=== PATIENT | female | born 1995 | race Caucasian/White ===

== ENCOUNTER 2023-01-03 12:26 | Emergency (ER) | payer MEDICAID, SELFPAY ==
[2023-01-03 12:27] VITALS: BP 134/88; PULSE 74; RESP 17; TEMP 36.8; O2SAT 97; BMI 25.0
[2023-01-03 12:31] VITALS: BP 134/88; PULSE 58; RESP 22; O2SAT 96
--- NOTE | 2023-01-03 12:34 | HMH.EDGENADL ---
Discharge Plan Disposition Patient Disposition: Home, Self-Care Referrals Follow up/Referrals: Nancy Chakraborty APRN [Primary Care Provider] - See instructions Activity Restrictions/Add. Instructions Additional Instructions/Restrictions: Please call [facility] plastic surgery to make an appointment with her hand specialists for evaluation of possible carpal tunnel intervention. Clinical Impressions Clinical Impression: Bilateral hand swelling Discharge ED Provider: Liang Isaac General Adult HPI General Chief complaint: Extremity Problem,Nontraumatic Stated complaint: hands swelling Time Seen by Provider: 01/03/23 12:34 History of Present Illness HPI narrative: 27-year-old female presenting with bilateral hand swelling nontraumatic in nature. She states that she has a history of injection drug use used for 3 years but has not used in the past 3 years. She states that she had an appointment in the past with a hand surgeon was post to do a carpal tunnel release but she went crazy with meth . She states that over the last several days her hand swelling has worsened she denies any chest pain shortness of breath more proximal swelling any fevers chills or focal swelling to her hands. She states that circumferential in nature worse with dependent improves with slight elevation at night sleeping with her hands on her chest. Specifically she asked for referral to hand surgery to have this evaluated further. She states she was unable to get her primary care doctor for an extended period of time which is why she came to the emergency department. Related Data Allergies Allergy/AdvReac Type Severity Reaction Status Date / Time amphetamine [From ADDERALL] Allergy Unknown Unverified 10/18/17 14:53 dextroamphetamine Allergy Unknown Unverified 10/18/17 14:53 [From ADDERALL] labetalol [LABETALOL] Allergy Unknown I-HIVES Unverified 10/18/17 14:53 quetiapine [From SEROQUEL] Allergy Unknown DIZZY, Unverified 10/18/17 14:53 FIDGETING ziprasidone [From GEODON] Allergy Unknown Unverified 10/18/17 14:53 PFSH PFS Disclaimer: The information contained in this section may have been updated after the patient was seen, as this information can be updated by other users. Medical History (Updated 01/03/23 @ 12:42 by Liang Isaac MD) ADHD Anxiety Surgical History (Updated 01/03/23 @ 12:34 by Mary Elliott RN) H/O section Family History (Updated 01/03/23 @ 12:34 by Mary Elliott RN) Other No significant family history Social History (Updated 01/03/23 @ 12:34 by Mary Elliott RN) Smoking Status: Current every day smoker alcohol intake: never current occupational status: other Travel in the last 8 weeks: None ROS Obtained: Yes All systems reviewed & no additional complaints except as documented Physical Exam General General appearance: alert and in no apparent distress Respiratory Respiratory exam: Present normal lung sounds bilaterally Cardiovascular Cardiovascular exam: Present regular rate; Absent tachycardia Extremities Exam Extremities exam: Present other (Bilateral upper extremities mildly swollen circumferentially in nature no pathologic erythema or focal fluctuance or swelling. Normal thumb opposition and strength and muscle mass in the thenar eminence and hypothenar eminence negative Tinel's and no muscular atrophy throughout the hands finger abd) Neurological Exam Neurological exam: Present alert and oriented X3 Medical Decision Making [place] Inquiry Pt receiving controlled substance: No Vital Signs: 01/03/23 12:27 01/03/23 12:31 Temperature 98.2 F Temperature Source Oral Pulse Rate 58 L Pulse Rate [Radial] 74 Respiratory Rate 17 22 Blood Pressure 134/88 Blood Pressure [Right Arm] 134/88 Blood Pressure Mean 99 Blood Pressure Mean [Right Arm] 103 Blood Pressure Source [Right Arm] Automatic Cuff Blood Pressure Position [Right Arm] Sittin
--- NOTE | 2023-01-03 12:37 | PC.NURSE ---
DR AVILA AT BEDSIDE
[2023-01-03 12:51] VITALS: BP 134/88; PULSE 58; RESP 20; TEMP 36.8; O2SAT 96
== END 2023-01-03 12:51 | disposition home or self-care (01) ==
PROVIDERS: Emergency Provider Student in an Organized Health Care Education/Training Program; PCP Registered Nurse
DX: R60.0 Localized edema (principal); F90.9 Attention-deficit hyperactivity disorder, unspecified type; F41.9 Anxiety disorder, unspecified; F17.210 Nicotine dependence, cigarettes, uncomplicated
CPT/HCPCS: 99283

== ENCOUNTER 2023-06-23 08:05 | Emergency (ER) | payer MEDICAID, SELFPAY ==
[2023-06-23 08:40] VITALS: BP 132/83; PULSE 85; RESP 18; TEMP 36.8; O2SAT 96; BMI 26.2
--- NOTE | 2023-06-23 09:08 | EXP.UTC ---
Discharge Plan Disposition Patient Disposition: Home, Self-Care Condition: Good Referrals Follow up/Referrals: Provider,Referral, MD [Primary Care Provider] - See instructions Activity Restrictions/Add. Instructions Additional Instructions/Restrictions: *Monitor Temp, Over the counter Motrin or Tylenol as directed/as needed Tylenol every 4 hours and Motrin every 6 hours (as long as your family doctor has told you that you can take it) for fever or pain. and straight to ER if unable to lower temp less than 101.0 after medication given *Warm salt water gargles may help to soothe the throat *Throat Lozenges? *Warm fluids like tea with honey may help to soothe the throat? *Sleep elevated *Humidifier/Vaporizer Follow up IMMEDIATELY for new or worsening symptoms or no Noticeable improvement over the next 48-72 hours. 911 for difficulty breathing or swallowing You were tested for today for Upper Respiratory Panel with COVID19 your test result should be back in the next 24-48 hours you may check your results on the [facility] [employer] Portal Clinical Impressions Clinical Impression: Encounter for laboratory testing for COVID-19 virus Stand Alone Forms Stand Alone Forms: Work/School Release Instructions Patient Instructions: DI for COVID-19 (Suspected or Confirmed ), Preventing the Spread of Coronavirus Discharge Instructions Discharge ED Provider: Erendira Pablo [facility] HPI General Stated complaint: covid +, fever, runny nose, cough, sore throat Mode of Arrival: Ambulatory Source of Information: Patient Limitations: No Limitations Time Seen by Provider: 06/23/23 09:09 Description of Symptoms (Recalled from Triage Doc. by RN): PATIENT C/O SORE THROAT AND BODY ACHES. REQUESTING COVID TEST HEENT Symptoms (Recalled from RN notes): Yes Resp Symptoms (Recalled from RN notes): No Skin Symptoms (Recalled from RN notes): No MS Symptoms (Recalled from RN notes): No Functional Status (Recalled from RN notes): WNL History of Present Illness Provider Complaint: Patient states that she has been having sore throat and body aches and she took a home COVID test and it was positive states that she wanted to get a COVID test here to make sure that she is positive Related Data Allergies Allergy/AdvReac Type Severity Reaction Status Date / Time amphetamine [From ADDERALL] Allergy Unknown Verified 06/23/23 09:03 dextroamphetamine Allergy Unknown Verified 06/23/23 09:03 [From ADDERALL] labetalol [LABETALOL] Allergy Unknown I-HIVES Verified 06/23/23 09:03 quetiapine [From SEROQUEL] Allergy Unknown DIZZY, Verified 06/23/23 09:03 FIDGETING ziprasidone [From GEODON] Allergy Unknown Verified 06/23/23 09:03 Worker's Comp Is this a Worker's Comp case?: No [facility] Disclaimer: The information contained in this section may have been updated after the patient was seen, as this information can be updated by other users. Medical History (Updated 06/23/23 @ 09:11 by Erendira Pablo APRN) ADHD Anxiety Surgical History (Updated 01/03/23 @ 12:34 by Mary Elliott RN) H/O section Family History (Updated 01/03/23 @ 12:34 by Mary Elliott RN) Other No significant family history Social History (Updated 01/03/23 @ 12:46 by Liang Isaac MD) Smoking Status: Current every day smoker alcohol intake: never current occupational status: other Travel in the last 8 weeks: None ROS Obtained: Yes All systems reviewed & no additional complaints except as documented and Yes Systems reviewed as appropriate & no additional complaints except as documented Constitutional Constitutional: Reports system reviewed and no additional complaints, except as documented and Reports as per HPI ENT Ears, Nose, Mouth, and Throat: Reports system reviewed and no additional complaints, except as documented, Reports as per HPI, Reports nasal congestion and Reports sore throat Cardiovascular Cardi
[2023-06-23 09:09] VITALS: BP 132/83; PULSE 85; RESP 18; TEMP 36.8; O2SAT 96
== END 2023-06-23 09:20 | disposition home or self-care (01) ==
PROVIDERS: Emergency Provider Nurse Practitioner
DX: U07.1 COVID-19 (principal); F17.210 Nicotine dependence, cigarettes, uncomplicated; F90.9 Attention-deficit hyperactivity disorder, unspecified type; F41.9 Anxiety disorder, unspecified
CPT/HCPCS: 99203; 99212; G0463

== ENCOUNTER 2023-10-19 21:04 | Emergency (ER) | payer MEDICAID, SELFPAY ==
[2023-10-19 21:05] VITALS: BP 137/92; PULSE 83; RESP 19; TEMP 36.9; O2SAT 100; BMI 29.9
[2023-10-19 21:30] VITALS: BP 137/92; PULSE 85; RESP 18; TEMP 36.6; O2SAT 96
--- NOTE | 2023-10-19 21:46 | HMH.EDGENADL ---
Discharge Plan Disposition Patient Disposition: Home, Self-Care Condition: Good Prescriptions Prescriptions: New ondansetron HCl 4 mg tablet 4 mg PO Q8H PRN (Reason: nausea and vomiting) 4 Days Qty: 12 0RF No Action buprenorphine-naloxone 8-2 mg tablet, sublingual sublingual lithium carbonate 300 mg tablet extended release PO risperidone 2 mg tablet 2 mg PO DAILY Patient Comments: TAKE 1 TABLET BY MOUTH DAILY AT BEDTIME aripiprazole 5 mg tablet 5 mg PO DAILY lidocaine 5 % adhesive patch,medicated 1 patch topical Patient Comments: APPLY TO THE LEFT HIP AT BEDTIME AND REMOVE UPON WAKING gabapentin 400 mg capsule 400 mg PO PRN atomoxetine 80 mg capsule PO Patient Comments: TAKE 1 CAPSULE BY MOUTH EVERY DAY bupropion HCl 300 mg tablet extended release 24 hr 300 mg PO DAILY Patient Comments: TAKE 1 TABLET BY MOUTH DAILY IN THE MORNING Paxlovid 300 mg (150 mg x 2)-100 mg tablets,dose pack PO Patient Comments: FOLLOW PACKAGE DIRECTIONS Referrals Follow up/Referrals: Ewa Brown APRN [Primary Care Provider] - See instructions Activity Restrictions/Add. Instructions Additional Instructions/Restrictions: You were evaluated in the emergency department today. 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 Hydrate is much as possible. Return to the emergency department for new or worsening symptoms. Clinical Impressions Clinical Impression: Viral gastritis Stand Alone Forms Stand Alone Forms: Work/School Release Discharge ED Provider: Stefania Rowe General Adult HPI General Chief complaint: Upper Respiratory Infection Stated complaint: vomiting, body aches Time Seen by Provider: 10/19/23 21:14 Mode of Arrival: Ambulatory Source of Information: Patient Limitations: No Limitations Description of Symptoms (Recalled from ER Triage Doc. by RN): 28 F presents from home with complaints of vomiting, subjective fever, and body aches. Patient states she is just here for a work excuse. History of Present Illness HPI narrative: This patient is a 28-year-old female who denies significant past medical history presenting to the emergency department for evaluation with concern for nausea and vomiting. Patient states that she thinks that she has a viral stomach bug, and her symptoms are already resolving. She states that her work got mad at her for calling in, so she came in for a work excuse. She denies any concerns or complaints at this time. She denies any abdominal pain. Related Data Home Medications Medication Instructions Recorded Confirmed aripiprazole 5 mg tablet 5 mg PO DAILY 06/29/23 09/26/23 atomoxetine 80 mg capsule mg PO 06/29/23 09/26/23 buprenorphine 8 mg-naloxone 2 mg tab sublingual 06/29/23 09/26/23 sublingual tablet bupropion HCl 300 mg 24 hr tablet, 300 mg PO DAILY 06/29/23 09/26/23 extended release gabapentin 400 mg capsule 400 mg PO PRN 06/29/23 09/26/23 lidocaine 5 % topical patch 1 patch topical 06/29/23 09/26/23 lithium carbonate 300 mg mg PO 06/29/23 09/26/23 tablet,extended release nirmatrelvir 300 mg (150 mg tab PO 06/29/23 09/26/23 x2)-ritonavir 100 mg tablet,dose pack (Paxlovid) risperidone 2 mg tablet 2 mg PO DAILY 06/29/23 09/26/23 Previous Rx's Medication Instructions Recorded ondansetron HCl 4 mg tablet 4 mg PO Q8H PRN nausea and 10/19/23 vomiting 4 days #12 tabs Allergies Allergy/AdvReac Type Severity Reaction Status Date / Time amphetamine [From ADDERALL] Allergy Unknown Verified 09/26/23 11:01 dextroamphetamine Allergy Unknown Verified 09/26/23 11:01 [From ADDERALL] labetalol [LABETALOL] Allergy Unknown I-HIVES Verified 09/26/23 11:01 quetiapine [From SEROQUEL] Allergy Unknown DIZZY, Verified 09/26/23 11:01 FIDGETING ziprasidone [From GEODON] Allergy Unknown Verified 09/26/23 11:01 PFS PFSH D
== END 2023-10-19 21:31 | disposition home or self-care (01) ==
PROVIDERS: Emergency Provider Emergency Medicine; PCP Nurse Practitioner Family
DX: A08.4 Viral intestinal infection, unspecified (principal); R11.2 Nausea with vomiting, unspecified; R50.9 Fever, unspecified; M79.18 Myalgia, other site; F17.210 Nicotine dependence, cigarettes, uncomplicated
CPT/HCPCS: 99283

== ENCOUNTER 2023-12-18 08:06 | Emergency (ER) | payer MEDICAID, SELFPAY ==
[2023-12-18 08:10] VITALS: BP 157/113; PULSE 97; O2SAT 99
--- NOTE | 2023-12-18 08:18 | ED_ITS ---
Discharge Plan Disposition Patient Disposition: Home, Self-Care Chief Complaint: Vaginal Bleeding Prescriptions Prescriptions: No Action aripiprazole 5 mg tablet 5 mg PO DAILY lidocaine 5 % adhesive patch,medicated 1 patch topical Patient Comments: APPLY TO THE LEFT HIP AT BEDTIME AND REMOVE UPON WAKING gabapentin 400 mg capsule 400 mg PO PRN atomoxetine 80 mg capsule PO Patient Comments: TAKE 1 CAPSULE BY MOUTH EVERY DAY bupropion HCl 300 mg tablet extended release 24 hr 300 mg PO DAILY Patient Comments: TAKE 1 TABLET BY MOUTH DAILY IN THE MORNING risperidone 1 mg tablet 1 mg PO DAILY Patient Comments: TAKE 1/2 TO 1 TABLET BY MOUTH EVERY DAY NEEDED FOR MOOD OR ANXIETY. MAY TAKE A 1/2 TABLET TWICE DAILY IN MORNING AND AFTERNOON bupropion HCl 150 mg tablet extended release 24 hr 150 mg PO DAILY Patient Comments: TAKE 1 TABLET BY MOUTH EVERY MORNING WITH 300 MG TABLET. Mirena 21 mcg/24 hours (8 yrs) 52 mg intrauterine device intrauterine lithium carbonate 300 mg tablet extended release 300 mg PO DAILY Patient Comments: TAKE 1 TABLET BY MOUTH EVERY DAY AT BEDTIME Sublocade 300 mg/1.5 mL solution, extended rel syringe 300 mg SQ QMONTH Classic 28 mg iron- 800 mcg tablet 1 tab PO DAILY Qty: 30 11RF Referrals Follow up/Referrals: Ewa Brown APRN [Primary Care Provider] - See instructions Activity Restrictions/Add. Instructions Additional Instructions/Restrictions: At this time it was felt you are safe to be discharged home. If new or worsening symptoms please do not hesitate to return the emergency department. Please call and schedule appoint with Dr. Martel's office this week. Clinical Impressions Clinical Impression: Vaginal bleeding Discharge ED Provider: Matt Flores General Adult HPI General Chief complaint: Vaginal Bleeding Stated complaint: blood clots bleeding Time Seen by Provider: 12/18/23 08:10 History of Present Illness HPI narrative: Patient is a 28-year-old female with past medical history of bipolar disorder on multi medication therapy, , 3 previous C-sections who presents emergency department for evaluation of vaginal bleeding. Her baseline menstrual cycle is regular, occurring 7 days in duration, using 1 pad approximately every 6 hours. This was her baseline until approximately last May when she had Mirena placed. Since then patient had no menstrual cycle until approximately 3 weeks ago, 2 weeks ago she presented to the Dr. Bailon who removed IUD as they were wishing to attempt to conceive. After IUD removal over the last 2 weeks patient has had persistent bleeding, 1 pad approximately every 3-4 hours, with passage of clots. Due to persistent symptoms she presents here for continued evaluation. No abdominal pain, no other acute complaints at this time. Related Data Home Medications Medication Instructions Recorded Confirmed aripiprazole 5 mg tablet 5 mg PO DAILY 06/29/23 12/12/23 atomoxetine 80 mg capsule mg PO 06/29/23 12/12/23 bupropion HCl 300 mg 24 hr tablet, 300 mg PO DAILY 06/29/23 12/12/23 extended release gabapentin 400 mg capsule 400 mg PO PRN 06/29/23 12/12/23 lidocaine 5 % topical patch 1 patch topical 06/29/23 12/12/23 bupropion HCl 150 mg 24 hr tablet, 150 mg PO DAILY 11/22/23 12/12/23 extended release levonorgestrel 21 mcg/24 hours (8 intrauterine 11/22/23 12/12/23 yrs) 52 mg intrauterine device (Mirena) risperidone 1 mg tablet 1 mg PO DAILY 11/22/23 12/12/23 buprenorphine 300 mg/1.5 mL 300 mg SQ QMONTH 12/12/23 12/12/23 solution,exten.rel.subcutaneous syringe (Sublocade) lithium carbonate 300 mg 300 mg PO DAILY 12/12/23 12/12/23 tablet,extended release Previous Rx's Medication Instructions Recorded vits no.126-ferrous fum 1 tab PO DAILY #30 tabs 12/12/23 28 mg iron-folic acid 800 mcg tablet (Classic ) Allergies Allergy/AdvReac Type Severity Reaction Status Date / Time amphetamine [From ADDERALL] Allergy Unknown Verified 12/18/23 08:27 dextroamphetamine Allergy Unknown Verified 12/18/23 08:27 [From ADDERALL] labetalol [LABETALOL] Allergy Unknown I-HIVES Verified 12/18/23 08:27 quetiapine [From SEROQUEL] Allergy Unknown DIZZY, Verified 12/18/23 08:27 FIDGETING ziprasidone [From GEODON] Allergy Unknown Verified 12/18/23 08:27 [facility] Disclaimer: The information contained in this section may have been updated after the patient was seen, as this information can be updated by other users. Medical History ADHD Anxiety Bipolar disorder PTSD (post-traumatic stress disorder) Surgical History H/O section x3 Family History Other Cancer Hypertension Social History Smoking Status: Current every day smoker tobacco type: cigarettes and e- cigarettes alcohol intake: never current occupational status: other Travel in the last 8 weeks: None ROS Obtained: Yes Systems reviewed as appropriate & no additional complaints except as documented Physical Exam General General appearance: alert and in no apparent distress Head Head exam: atraumatic and normocephalic Eye Eye exam: Present PERRL ENT ENT exam: Present mucous membranes moist Neck Neck exam: Present normal inspection Chest Chest inspection: Present normal inspection and symmetric chest wall rise Respiratory Respiratory exam: Absent respiratory distress Cardiovascular Cardiovascular exam: Present regular rate and normal rhythm Abdominal Exam Abdominal exam: Present soft; Absent tenderness Bimanual exam: Present other (Cashier Receptionist 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 External genitalia normal, no bleeding identified in the posterior vaginal vault or from the cervix, no purulence.) Extremities Exam Extremities exam: Present normal inspection Neurological Exam Neurological exam: Present alert Psychiatric Psychiatric exam: Present normal affect Skin Skin exam: Present warm and dry Medical Decision Making [place] Inquiry Pt receiving controlled substance: No Vital Signs: 12/18/23 08:19 12/18/23 08:10 12/18/23 08:26 Temperature 98.7 F Temperature Source Oral Pulse Rate 97 H 100 H Pulse Rate [Left] 101 H Respiratory Rate 14 Blood Pressure 157/113 H 122/77 Blood Pressure [Right Arm] 157/113 H Blood Pressure Mean [Right Arm] 127 Blood Pressure Source [Right Arm] Automatic Cuff Blood Pressure Position [Right Arm] Sitting 02 Sat by Pulse Oximetry 100 99 100 Oxygen Delivery Method Room Air Room Air Room Air Lab Data Lab Results 12/18/23 08:40: WBC 8.0, RBC 4.50, Hgb 13.9, Hct 41.8, MCV 92.8, MCH 30.9, MCHC 33.3, RDW 13.3, Plt Count 298, MPV 8.1, Neut % (Auto) 67.2, Lymph % (Auto) 25.6, Castro % (Auto) 5.4, Eos % (Auto) 1.5, Baso % (Auto) 0.4, Neut # (Auto) 5.4, Lymph # (Auto) 2.0, Castro # (Auto) 0.4, Eos # (Auto) 0.1, Baso # (Auto) 0.0, Sodium 139, Potassium 4.1, Chloride 104, Carbon Dioxide 29, Anion Gap 10.1, BUN 19 H, Creatinine 0.70, Estimated Creat Clear 146, Estimated GFR 98, Est GFR ( Amer) 119, Glucose 106 H, Calcium 9.9, Total Bilirubin 0.5, AST 53 H, ALT 34, Alkaline Phosphatase 95, Total Protein 8.8 H, Albumin 5.2 H, Globulin 3.6 H, Albumin/Globulin Ratio 1.4, Serum HCG, Qual Negative 12/18/23 08:59: Urine Color Yellow, Urine Appearance Clear, Urine pH 7.0, Ur Specific [place] 1.025, Urine Protein Negative, Urine Glucose (UA) Negative, Urine Ketones Negative, Urine Blood Negative, Urine Nitrate Negative, Urine Bilirubin Negative, Urine Urobilinogen 0.2, Ur Leukocyte Esterase Negative, Urine RBC None, Urine WBC Occasional, Ur Squamous Epith Cells 20-50, Urine Bacteria 1+ 12/18/23 08:40 12/18/23 08:40 Orders (Tests/Meds): ED MEDICATIONS Discontinued Medications Generic Name Dose Route Start Last Admin Trade Name Freq PRN Reason Stop Dose Admin Ibuprofen 600 mg 12/18/23 09:44 12/18/23 09:47 Ibuprofen 600 Mg Tablet PO 12/18/23 09:45 600 mg ONCE ONE Administration ORDERS Category Date Time Status CBC w/Auto Diff [Complete Blood Count Auto Diff] Stat Lab 12/18/23 08:40 Completed CMP [Comprehensive Metabolic Panel] Stat Lab 12/18/23 08:40 Results Free T4 (Free Thyroxine) Stat Lab 12/18/23 08:18 Ordered HCG Qualitative, Serum Stat Lab 12/18/23 08:40 Completed TSH [Thyroid Stimulating Hormone] Stat Lab 12/18/23 08:40 Results UA [Urinalysis and Microscopic] Stat Lab 12/18/23 08:59 Completed Medical Decision Narrative: In summary patient is a 28-year-old female with past medical history described above who presents emergency department for evaluation of vaginal bleeding. Patient is hemodynamically stable nontoxic-appearing upon arrival, slight tachycardia, afebrile. Differential diagnosis includes abnormal HPA that is venessa djusting in the setting of recent IUD removal, vaginal bleeding, structural vaginal bleeding, coagulopathy, among others. Workup will be conducted with hematologic labs. Initial interventions will be deferred until status can be established. Workup reviewed by me, hematologic labs are nonactionable, no acute blood loss anemia, no critical electrolyte abnormalities or TAYLER, patient is non, urinalysis interpreted by me and not consistent with infection. Patient was given 600 mg of ibuprofen. She was instructed to take ibuprofen over the next couple of days and will follow-up next week with Dr. Bailon for discussion of possible contraception versus expectant management given their goals. Critical Care Critical Care Time Critical Care Time: No
[2023-12-18 08:19] VITALS: BP 157/113; PULSE 101; RESP 14; TEMP 37.1; O2SAT 100; BMI 28.8
[2023-12-18 08:26] VITALS: BP 122/77; PULSE 100; O2SAT 100
--- NOTE | 2023-12-18 08:47 | PC.NURSE ---
I rounded on the pt, and asked her to undress from the waist down so that can do a pelvic exam. pt has no new complaints at this time.
[2023-12-18 08:54] LABS: Basophils % 0.4 % (0.1-2.0); Eosinophils # 0.1 K/mm3 (0.0-0.4); Eosinophils % 1.5 % (0.1-12.0); Hematocrit 41.8 % (37.0-47.0); Hemoglobin 13.9 g/dL (12.2-16.2); Lymphocytes % 25.6 % (10-50); Mean Corpuscular HGB Conc 33.3 g/dL (31.8-35.4); Mean Corpuscular Hemoglobin 30.9 pg (27.0-31.2); Mean Corpuscular Volume 92.8 fl (81-99); Mean Platelet Volume 8.1 fl (7.4-10.4); Monocytes # 0.4 K/mm3 (0.1-1.0); Monocytes % 5.4 % (1.7-9.3); Neutrophils # 5.4 K/mm3 (1.8-7.8); Neutrophils % 67.2 % (37.0-80.0); Platelet Count 298 K/mm3 (142-424); Red Cell Distribution Width 13.3 % (11.5-17.5)
--- NOTE | 2023-12-18 09:00 | PC.NURSE ---
Bedside with to do pts pelvic exam.
[2023-12-18 09:05] LABS: Appearance,Urine CLEAR (Clear); Bilirubin,Urine Negative (Negative); Blood, Urine Negative (Negative); Color,Urine YELLOW (Yellow); Glucose,Urine (UA) Negative (Negative); Ketones,Urine Negative (Negative); Leukocyte Esterase,Urine Negative (Negative); Microscopic, Urine URINE MICROSCOPIC (MICROSCOPIC); Nitrate,Urine Negative (Negative); Protein,Urine Negative (Negative); Specific Gravity, Urine 1.025 (1.005-1.030); Urobilinogen,Urine 0.2 EU/dl (0.2)
[2023-12-18 09:16] LABS: Chloride 104 mmol/L (98-107); Potassium 4.1 mmoL/L (3.5-5.1); Sodium 139 mmol/L (136-145)
[2023-12-18 09:19] LABS: Alanine Aminotransferase 34 U/L (12-78); Albumin Level 5.2 g/dl (3.5-5.0); Albumin/Globulin Ratio 1.4 (1.1-1.8); Alkaline Phosphatase 95 U/L (38-126); Anion Gap 10.1 mEq/L (5-15); Aspartate Amino Transferase 53 U/L (14-36); Bilirubin,Total 0.5 mg/dl (0.2-1.3); Blood Urea Nitrogen 19 mg/dl (7-17); Carbon Dioxide 29 mmol/L (22.0-30.0); Creatinine Clearance Estimated 146 mL/min (50-200); Estimated Glomerular Filt Rate 98 ml/min (>60); GFR (African American) 119 ML/MIN (>60); Globulin 3.6 g/dL (1.3-3.2); Total Protein,Serum 8.8 g/dl (6.3-8.2)
[2023-12-18 09:20] LABS: Calcium 9.9 mg/dl (8.4-10.2); Glucose 106 mg/dl (74-100)
[2023-12-18 09:21] LABS: HCG Qualitative, Serum Negative (Negative)
[2023-12-18 09:37] LABS: Bacteria,Urine 1+ /lpf; Squamous Epithelial Cell,Urine 20-50 #/hpf (0-5); WBC,Urine Occasional #/hpf (0-3)
[2023-12-18] MEDS: IBUPROFEN 600 MG TABLET PO (09:47)
[2023-12-18 09:51] LABS: Thyroid Stimulating Hormone 1.12 uIU/mL (0.465-4.68)
[2023-12-18 10:02] VITALS: BP 122/77; PULSE 89; RESP 16; TEMP 37.1
[2023-12-18 10:18] LABS: Free T4 (Free Thyroxine) 1.11 ng/dl (0.78-2.19)
== END 2023-12-18 10:03 | disposition home or self-care (01) ==
PROVIDERS: Emergency Provider Emergency Medicine; PCP Nurse Practitioner Family
DX: N93.9 Abnormal uterine and vaginal bleeding, unspecified (principal); F17.210 Nicotine dependence, cigarettes, uncomplicated
CPT/HCPCS: 80053; 81001; 84439; 84443; 84703; 85025; 99283

== ENCOUNTER 2024-02-13 15:58 | Emergency (ER) | payer MEDICAID, SELFPAY ==
[2024-02-13 16:00] VITALS: BP 136/65; PULSE 72; RESP 20; TEMP 36.9; O2SAT 98; BMI 28.3
--- NOTE | 2024-02-13 16:13 | ED_ITS ---
<Statement entered by Liang Isaac MD - 02/13/24 22:03> I was consulted by the NIKKY, and we discussed the complexity of the problems being addressed. I approved the treatment and management plan for this patient's care in the emergency department, thus performing a substantive portion of the medical decision making. Liang Isaac MD, SHONDA, FACEP Discharge Plan Disposition Patient Disposition: Home, Self-Care Condition: Good Chief Complaint: Upper Respiratory Infection Prescriptions Prescriptions: No Action aripiprazole 5 mg tablet 5 mg PO DAILY lidocaine 5 % adhesive patch,medicated 1 patch topical Patient Comments: APPLY TO THE LEFT HIP AT BEDTIME AND REMOVE UPON WAKING gabapentin 400 mg capsule 400 mg PO PRN atomoxetine 80 mg capsule PO Patient Comments: TAKE 1 CAPSULE BY MOUTH EVERY DAY bupropion HCl 300 mg tablet extended release 24 hr 300 mg PO DAILY Patient Comments: TAKE 1 TABLET BY MOUTH DAILY IN THE MORNING risperidone 1 mg tablet 1 mg PO DAILY Patient Comments: TAKE 1/2 TO 1 TABLET BY MOUTH EVERY DAY NEEDED FOR MOOD OR ANXIETY. MAY TAKE A 1/2 TABLET TWICE DAILY IN MORNING AND AFTERNOON bupropion HCl 150 mg tablet extended release 24 hr 150 mg PO DAILY Patient Comments: TAKE 1 TABLET BY MOUTH EVERY MORNING WITH 300 MG TABLET. lithium carbonate 300 mg tablet extended release 300 mg PO DAILY Patient Comments: TAKE 1 TABLET BY MOUTH EVERY DAY AT BEDTIME Sublocade 300 mg/1.5 mL solution, extended rel syringe 300 mg SQ QMONTH Classic 28 mg iron- 800 mcg tablet 1 tab PO DAILY Qty: 30 11RF Referrals Follow up/Referrals: Rk Kc MD [Primary Care Provider] - See instructions Activity Restrictions/Add. Instructions Additional Instructions/Restrictions: Please return to the emergency department for any headache, fever greater than 101, chest pain, difficulty breathing, or as needed. Alternate Tylenol and Motrin every 4 hours as needed for constitutional symptoms. Clinical Impressions Clinical Impression: Acute upper respiratory infection Discharge ED Provider: Liang Isaac General Adult HPI General Chief complaint: Upper Respiratory Infection Stated complaint: sore throat fever fluid in ear detox Time Seen by Provider: 02/13/24 16:03 History of Present Illness HPI narrative: Patient presents for evaluation of subjective fever, malaise, body aches, productive cough. Patient does have a history of IV drug use and her last use was Tuesday of both methamphetamine and heroin. Patient has been incarcerated since Tuesday evening and has not used since. Patient reports that she began feeling unwell in correction since discharge on Tuesday night. Denies chest pain shortness of breath chills hemoptysis hematochezia melena hematemesis headache palpitations abdominal pain back pain. Related Data Home Medications Medication Instructions Recorded Confirmed aripiprazole 5 mg tablet 5 mg PO DAILY 06/29/23 12/20/23 atomoxetine 80 mg capsule mg PO 06/29/23 12/20/23 bupropion HCl 300 mg 24 hr tablet, 300 mg PO DAILY 06/29/23 12/20/23 extended release gabapentin 400 mg capsule 400 mg PO PRN 06/29/23 12/20/23 lidocaine 5 % topical patch 1 patch topical 06/29/23 12/20/23 bupropion HCl 150 mg 24 hr tablet, 150 mg PO DAILY 11/22/23 12/20/23 extended release risperidone 1 mg tablet 1 mg PO DAILY 11/22/23 12/20/23 buprenorphine 300 mg/1.5 mL 300 mg SQ QMONTH 12/12/23 12/20/23 solution,exten.rel.subcutaneous syringe (Sublocade) lithium carbonate 300 mg 300 mg PO DAILY 12/12/23 12/20/23 tablet,extended release Previous Rx's Medication Instructions Recorded vits no.126-ferrous fum 1 tab PO DAILY #30 tabs 12/12/23 28 mg iron-folic acid 800 mcg tablet (Classic ) Allergies Allergy/AdvReac Type Severity Reaction Status Date / Time amphetamine [From ADDERALL] Allergy Unknown Verified 12/20/23 14:23 dextroamphetamine Allergy Unknown Verified 12/20/23 14:23 [From ADDERALL] labetalol [LABETALOL] Allergy Unknown I-HIVES Verified 12/20/23 14:23 quetiapine [From SEROQUEL] Allergy Unknown DIZZY, Verified 12/20/23 14:23 FIDGETING ziprasidone [From GEODON] Allergy Unknown [facility]23 [facility] Disclaimer: The information contained in this section may have been updated after the patient was seen, as this information can be updated by other users. Medical History ADHD Anxiety Bipolar disorder PTSD (post-traumatic stress disorder) Surgical History H/O section x3 Family History Other Cancer Hypertension Social History Smoking Status: Current every day smoker tobacco type: cigarettes and e- cigarettes alcohol intake: never current occupational status: other Travel in the last 8 weeks: None ROS Obtained: Yes Systems reviewed as appropriate & no additional complaints except as documented Physical Exam General General appearance: alert and in no apparent distress Head Head exam: atraumatic and normal inspection Eye Eye exam: Present normal appearance, PERRL and EOMI ENT ENT exam: Present normal exam, mucous membranes moist and TM's normal bilaterally; Absent normal oropharynx (Patient has an erythematous posterior pharynx with postnasal drip) Neck Neck exam: Present normal inspection, full ROM and trachea midline; Absent tenderness or lymphadenopathy Chest Chest inspection: Present normal inspection and symmetric chest wall rise Respiratory Respiratory exam: Present normal lung sounds bilaterally; Absent respiratory distress, wheezes, stridor or accessory muscle use Cardiovascular Cardiovascular exam: Present regular rate, normal rhythm, normal heart sounds, +S1 and +S2 Abdominal Exam Abdominal exam: Present soft and normal bowel sounds; Absent tenderness Extremities Exam Extremities exam: Present normal inspection and full ROM Back Exam Back exam: Present normal inspection and full ROM; Absent tenderness Neurological Exam Neurological exam: Present alert, oriented X3 and CN II-XII intact Psychiatric Psychiatric exam: Present normal affect and normal mood Skin Skin exam: Present warm, dry and normal color Medical Decision Making Medical Records Medical records reviewed: Yes I reviewed the patient's medical records. Chapin Inquiry Pt receiving controlled substance: No Vital Signs: 02/13/24 16:00 Temperature 98.5 F Temperature Source Oral Pulse Rate [Right Radial] 72 Respiratory Rate 20 Blood Pressure [Right Arm] 136/65 Blood Pressure Mean [Right Arm] 88 02 Sat by Pulse Oximetry 98 Oxygen Delivery Method Room Air Lab Data Lab results reviewed: Yes I reviewed the patient's lab results. Lab Results 02/13/24 16:36: SARS-CoV-2 (PCR) Not detected, Influenza A Untype (PCR) Not detected, Influenza Type B (PCR) Not detected 02/13/24 : Group A Strep Rapid Negative Orders (Tests/Meds): ED MEDICATIONS Discontinued Medications Generic Name Dose Route Start Last Admin Trade Name Marii PRN Reason Stop Dose Admin Acetaminophen 1,000 mg 02/13/24 16:23 02/13/24 16:42 Acetaminophen 500mg Tab PO 02/13/24 16:24 1,000 mg ONCE ONE Administration Ketorolac Tromethamine 30 mg 02/13/24 16:23 02/13/24 16:43 Ketorolac 30mg/Ml Vial IM 02/13/24 16:24 30 mg ONCE ONE Administration ORDERS Category Date Time Status Rapid PCR Covid and Flu A/B Stat Lab 02/13/24 16:36 Completed Rapid Strep Scrn Group A [Strep Scrn Group A (Rapid)] Lab 02/13/24 Completed Stat Strep Screen Confirmation Stat Micro 02/13/24 Received Medical Decision Narrative: In summary patient is a 29-year-old female who presents to the emergency department for evaluation of signs and symptoms of a pressure tract infection. Patient is hemodynamically stable upon arrival, afebrile. Physical exam is remarkable for inflamed nasal mucosa, inflamed posterior pharynx with postnasal drip, no lymphadenopathy, normal breath sounds normal heart rate afebrile. Patient has a history of IV drug use last use was on Tuesday. Patient normally injects in the veins in her neck. There is no evidence of infection redness cellulitis in any of the areas in her neck. Differential diagnosis includes vir al respiratory tract infection versus bacterial. I considered possible sepsis however patient has no signs and symptoms of such currently. Initial workup will be conducted with COVID and flu. Initial interventions include Toradol and Tylenol. Initial workup reviewed by me shows that her COVID and flu are negative.. Upon repeat evaluation patient has had some improvement in her constitutional symptoms but still reports having cough.. Given this patient is appropriate for discharge with instructions for taking Tylenol Motrin [id number]-[id number] as needed and any plha-ijt-tlnzwci cough/cold flu medication that she deems helpful. Patient given detailed return instructions including prolonged fever, shortness of breath, chest pain, intractable headache. Patient verbalized understanding and agreement. Critical Care Critical Care Time Critical Care Time: No
[2024-02-13 16:40] LABS: Coronavirus 19, PCR Not Detected (NotDetected); Influenza A, PCR Not Detected (NotDetected); Influenza B, PCR Not Detected (NotDetected)
[2024-02-13] MEDS: ACETAMINOPHEN 500MG TAB 1000 MG PO (16:42)
[2024-02-13] MEDS: KETOROLAC 30MG/ML VIAL 30 MG IM (16:43)
[2024-02-13 17:20] LABS: Strep Scrn Group A (Rapid) Negative (Negative)
[2024-02-13 17:51] VITALS: BP 117/78; PULSE 89; RESP 20; TEMP 36.8; O2SAT 99
== END 2024-02-13 17:52 | disposition home or self-care (01) ==
PROVIDERS: Physician Assistant; Emergency Provider Student in an Organized Health Care Education/Training Program; PCP Internal Medicine Adolescent Medicine
DX: J06.9 Acute upper respiratory infection, unspecified (principal); R50.9 Fever, unspecified; R05.9 Cough, unspecified; F17.210 Nicotine dependence, cigarettes, uncomplicated; F43.10 Post-traumatic stress disorder, unspecified; F19.10 Other psychoactive substance abuse, uncomplicated
CPT/HCPCS: 87430; 87636; 96372; 99283

== ENCOUNTER 2024-10-02 09:51 | Outpatient (CLI) | payer MEDICAID, SELFPAY ==
[2024-10-02 10:01] VITALS: BMI 28.3
--- NOTE | 2024-10-02 10:02 | US_ITS ---
PROCEDURE INFORMATION: Exam: US After First Trimester, Transabdominal Exam date and time: 10/02/2024 10:51 AM Age: 29 years old Clinical indication: Lmp or gestational age (in weeks): 15w4d; Other: Dec movement; ; Additional info: New ob unsure dates TECHNIQUE: Imaging protocol: Real-time transabdominal obstetrical ultrasound of the maternal pelvis and a second or third trimester with image documentation. Total images: 344 COMPARISON: No relevant prior studies available. FINDINGS: Gestation: Single living intrauterine gestation. heart rate: 138 bpm presentation and position: Cephalic presentation. Placenta: Unremarkable. No subchorionic bleed. Placenta is posterior, grade 1. Amniotic fluid (Qualitative): Amniotic fluid is normal for gestational age. BIOMETRY: Gestational age (AUA): 15 w 5 d Estimated due date (AUA): 03/21/2025 Estimated weight: 124.3 g. EFW by AC, BPD, FL, HC, [place] 1985. 23.1 percentile Biparietal diameter (BPD): 3.15 cm. EGA (BPD) is 15 w 6 d Head circumference (HC): 11.76 cm. EGA (HC) is 15 w 6 d Abdominal circumference (AC): 9.6 cm. EGA (AC) is 15 w 5 d Femur length (FL): 1.71 cm. EGA (FL) is 15 w 0 d HC/AC: 1.23 FL/BPD: 0.54 FL/AC: 0.18 MATERNAL: Uterus: Unremarkable. Cervix: Unremarkable. Cervix is closed. Right ovary/adnexa: Obscured by lack of adequate acoustic window. Left ovary/adnexa: Obscured by lack of adequate acoustic window. Intraperitoneal space: No intraperitoneal free fluid. IMPRESSION: 1. Single living intrauterine gestation. 2. Average gestational age (AUA) 15 weeks 5 days. 3. heart rate recorded to be 138 bpm.
[2024-10-02 10:20] VITALS: BP 132/82; PULSE 89; RESP 16; TEMP 37.3; O2SAT 99; BMI 28.3
[2024-10-02 10:29] LABS: Microscopic, Urine URINE MICROSCOPIC (MICROSCOPIC)
[2024-10-02 10:41] LABS: Appearance,Urine SL CLOUDY (Clear); Bilirubin,Urine Negative (Negative); Blood, Urine Negative (Negative); Color,Urine YELLOW (Yellow); Glucose,Urine (UA) Negative (Negative); Ketones,Urine TRACE (Negative); Leukocyte Esterase,Urine Negative (Negative); Nitrate,Urine Negative (Negative); PH,Urine 7.5 (5.0-8.5); Protein,Urine Negative (Negative)
[2024-10-02 10:43] LABS: Basophils % 0.4 % (0.1-2.0); Eosinophils % 0.1 % (0.1-12.0); Hematocrit 34.9 % (37.0-47.0); Hemoglobin 11.9 g/dL (12.2-16.2); Lymphocytes # 1.1 K/mm3 (0.7-4.5); Lymphocytes % 14.6 % (10-50); Mean Corpuscular Hemoglobin 30.5 pg (27.0-31.2); Mean Corpuscular Volume 89.5 fl (81-99); Mean Platelet Volume 8.1 fl (7.4-10.4); Monocytes # 0.3 K/mm3 (0.1-1.0); Monocytes % 4.3 % (1.7-9.3); Neutrophils # 6.1 K/mm3 (1.8-7.8); Neutrophils % 80.6 % (37.0-80.0); Platelet Count 265 K/mm3 (142-424); Red Cell Distribution Width 13.7 % (11.5-17.5); White Blood Count 7.6 K/mm3 (4.8-10.8)
[2024-10-02 10:52] LABS: Bacteria,Urine 2+ /lpf; Squamous Epithelial Cell,Urine 20-50 #/hpf (0-5)
[2024-10-02 10:58] LABS: Benzodiazepines Screen,Urine Negative ng/ml (<200)
[2024-10-02 10:59] LABS: Amphetamine/Metha Screen,Urine Negative ng/ml (<1000)
[2024-10-02 11:00] LABS: Barbiturates Screen,Urine Negative ng/ml (<200); Cannabinoid Screen,Urine Negative ng/ml (<50)
[2024-10-02 11:01] LABS: Cocaine Screen,Urine Negative ng/ml (<300)
[2024-10-02 11:02] LABS: Methadone Screen,Urine Negative ng/ml (<300); Opiate Screen,Urine Negative ng/ml (<300)
[2024-10-02 11:03] LABS: Phencyclidine Screen,Urine Negative ng/ml (<25)
[2024-10-03 07:16] LABS: HIV Screen 4th Generation wRfx Non Reactive (Non Reactive); Hepatitis B Surface Antigen Negative (Negative)
[2024-10-03 08:21] LABS: Rubella Antibodies, IgG 1.59 index (Immune >0.99)
[2024-10-03 12:13] LABS: Rapid Plasma Reagin Ab Titer Non Reactive titer (NonRea<1:1)
[2024-10-04 20:13] LABS: HCV Ab Reactive (Non Reactive)
== END 2024-10-02 11:15 | disposition home or self-care (01) ==
LOC: OBOUT 09:54 → OB 09:55
PROVIDERS: Visit Provider Obstetrics & Gynecology
DX: O36.8120 Decreased fetal movements, second trimester, not applicable or unspecified (principal); Z3A.15 15 weeks gestation of pregnancy
CPT/HCPCS: 36415; 76805; 80307; 81001; 85025; 86593; 86762; 86803; 86850; 87086; 87340; G0463

== ENCOUNTER 2025-09-25 19:00 | Emergency (ER) | payer MEDICAID, SELFPAY ==
--- NOTE | 2025-09-25 19:12 | ED_ITS ---
<Statement entered by Chay Aviles DO - 09/26/25 00:58> I was consulted by the NIKKY, and we discussed the complexity of problems being addressed. I approved the treatment and management plan for this patient's care in the emergency department, thus performing a substantive portion of the medical decision making. Chay Aviles DO Discharge Plan Disposition Patient Disposition: Home, Self-Care Condition: Good Prescriptions Prescriptions: New famotidine 20 mg tablet 20 mg PO DAILY Qty: 30 0RF prednisone 20 mg tablet 20 mg PO BID 7 Days Qty: 14 0RF cephalexin 500 mg capsule 500 mg PO BID 7 Days Qty: 14 0RF No Action aripiprazole 5 mg tablet 5 mg PO DAILY lidocaine 5 % adhesive patch,medicated 1 patch topical Patient Comments: APPLY TO THE LEFT HIP AT BEDTIME AND REMOVE UPON WAKING gabapentin 400 mg capsule 400 mg PO PRN atomoxetine 80 mg capsule PO Patient Comments: TAKE 1 CAPSULE BY MOUTH EVERY DAY bupropion HCl 300 mg tablet extended release 24 hr 300 mg PO DAILY Patient Comments: TAKE 1 TABLET BY MOUTH DAILY IN THE MORNING risperidone 1 mg tablet 1 mg PO DAILY Patient Comments: TAKE 1/2 TO 1 TABLET BY MOUTH EVERY DAY NEEDED FOR MOOD OR ANXIETY. MAY TAKE A 1/2 TABLET TWICE DAILY IN MORNING AND AFTERNOON bupropion HCl 150 mg tablet extended release 24 hr 150 mg PO DAILY Patient Comments: TAKE 1 TABLET BY MOUTH EVERY MORNING WITH 300 MG TABLET. lithium carbonate 300 mg tablet extended release 300 mg PO DAILY Patient Comments: TAKE 1 TABLET BY MOUTH EVERY DAY AT BEDTIME Sublocade 300 mg/1.5 mL solution, extended rel syringe 300 mg SQ QMONTH Classic 28 mg iron- 800 mcg tablet 1 tab PO DAILY Qty: 30 11RF Referrals Follow up/Referrals: Provider,Referral, MD [Referring, Medical] - See instructions Activity Restrictions/Add. Instructions Additional Instructions/Restrictions: Take Benadryl every 6 hours at home. We will give you steroids, take them as directed. May also take the famotidine as directed. If any worsening rash occurs please see PCP or return to the ED. Clinical Impressions Clinical Impression: Allergic reaction Instructions Patient Instructions: DI for Rash Print Language Print Language: Puerto Rican Discharge ED Provider: Chay Aviles General Adult HPI General Chief complaint: Allergic Reaction Stated complaint: rash all over body,itchy all over, boil on inner l Time Seen by Provider: 09/25/25 19:06 History of Present Illness HPI narrative: 30-year-old female presents to the ED tonight for complaint of rash on her chest, abdomen and back. She also has them on her legs. Patient says that she has had the rash since Tuesday. She did get an injection on at her rehab place. She says that she had been on Suboxone in the past and got several shots in the past but never had a reaction. She said her skin started itching on but no rash appeared until Tuesday. She has had Benadryl cream that she has been using and using face lotions and washes but nothing has made the rash go away. She denies fevers or chills. No throat swelling or itching or difficulty swallowing. No wheezing no chest pain or shortness of breath. Related Data Home Medications ?Medication ?Instructions ?Recorded ?Confirmed aripiprazole 5 mg tablet 5 mg PO DAILY 06/29/2312/20 atomoxetine 80 mg capsule mg PO 06/29/23 12/20/23 bupropion HCl 300 mg 24 hr tablet, 300 mg PO DAILY 12/20/23 extended release gabapentin 400 mg capsule 400 mg PO PRN 06/29/2312/20 lidocaine 5 % topical patch 1 patch topical 06/29/23 0 12/20/23 bupropion HCl 150 mg 24 hr tablet, 150 mg PO DAILY 12/20/23 extended release risperidone 1 mg tablet 1 mg PO DAILY 11/22/2312/20 buprenorphine 300 mg/1.5 mL 300 mg SQ QMONTH 12/12/23 12/20/23 solution,exten.rel.subcutaneous syringe (Sublocade) lithium carbonate 300 mg 300 mg PO DAILY 12/12/23 tablet,extended release Previous Rx's ?Medication ?Instructions ?Recorded vits no.126-ferrous fum 1 tab PO DAILY #30 ta bs 12/12/23 28 mg iron-folic acid 800 mcg tablet (Classic ) cephalexin 500 mg capsule 500 mg PO BID 7 days #14 cap s 09/25/25 famotidine 20 mg tablet 20 mg PO DAILY #30 tabs 09/01 04/24 prednisone 20 mg tablet 20 mg PO BID 7 days #14 tabs 09/25/25 Allergies Allergy/AdvReac Type Severity Reaction Status Date / Time amphetamine (From ADDERALL) Allergy Unknown Verified 12/20/23 14:23 dextroamphetamine (From Allergy Unknown Verified 12/20/23 14:23 ADDERALL) labetalol (LABETALOL) Allergy Unknown I-HIVES Verified 12/20/23 14:23 quetiapine (From SEROQUEL) Allergy Unknown DIZZY, Verified 12/20/23 14:23 FIDGETING ziprasidone (From GEODON) Allergy Unknown Verified 12/20/23 14:23 PF[facility] Disclaimer: The information contained in this section may have been updated after the patient was seen, as this information can be updated by other users. Medical History (Updated 09/25/25 @ 19:28 by Micheline Grant (ED), INTERNATIONAL GUEST COORDINATOR) Abnormal cervical Papanicolaou smear PTSD (post-traumatic stress disorder) Bipolar disorder Anxiety ADHD Surgical History H/O section Family History Other Cancer Hypertension Social History Smoking Status: Current every day smoker tobacco type: cigarettes and e- cigarettes alcohol intake: never current occupational status: other Travel in the last 8 weeks?: None Have you lived/traveled outside US in past 30 days?: No Contact w/someone who lives/traveled outside US past 30 days?: No Exposure to someone with infectious disease in past 14 days?: No Do you have a fever (greater than 100.4 F or 38 C)?: No Have you tested positive for COVID-19?: No Exposed to someone with COVID-19 in past 14 days?: No Do you have a sore throat?: No Do you have a cough?: No Do you have any weakness?: No Do you have any diarrhea?: No Are you experiencing any unusual bleeding?: No Do you have any muscle aches/pain?: No Do you have any abdominal pain?: No Are you experiencing loss of taste or smell?: No Other Medical History Have you received the Flu Vaccine for this season: No Have you received the Pneumonia Vaccine: No ROS Obtained: Yes Systems reviewed as appropriate & no additional complaints except as documented Constitutional Constitutional: Reports as per HPI Physical Exam General General appearance: alert Head Head exam: normocephalic Eye Eye exam: Present PERRL and EOMI ENT ENT exam: Present normal oropharynx and mucous membranes moist Neck Neck exam: Present full ROM and trachea midline Respiratory Respiratory exam: Present normal lung sounds bilaterally Cardiovascular Cardiovascular exam: Present regular rate, normal rhythm, normal heart sounds, +S1 and +S2 Abdominal Exam Abdominal exam: Present soft and normal bowel sounds Extremities Exam Extremities exam: Present full ROM and normal capillary refill Neurological Exam Neurological exam: Present alert and oriented X3 Skin Skin exam: Present warm, dry and other (She does have a raised area in her right inguinal that is tender but has no redness and is the size of a pencil eraser. No drainage no erythema around the site.) Medical Decision Making Medical Records Screening: Per USPSTF and CDC recommendations, given the prevalence of disease in our region, it is our hospital?s policy to screen for HIV and viral Hepatitis for all patients aged 18 and over and those with ongoing risk factors. Chapin Inquiry Pt receiving controlled substance: No Chapin was queried for this patient: No Vital Signs: 09/25/25 19:18 09/25/25 20:17 Temperature 97.9 F 97.9 F Temperature Source Oral Oral Pulse Rate 78 Pulse Rate [Left] 82 Respiratory Rate 18 18 Blood Pressure 137/74 Blood Pressure [Right Arm] 154/83 H Blood Pressure Mean [Right Arm] 106 Blood Pressure Source Automatic Cuff Blood Pressure Position Sitting 02 Sat by Pulse Oximetry 98 Oxygen Delivery Method Room Air Room Air Orders (Tests/Meds): ED MEDICATIONS Discontinued Medications Generic Name Dose Route Start Last Admin Trade Name Philipq PRN Reason Stop Dose Admin Dexamethasone Sodium Phosphate 8 mg 09/25/25 20:15 09/25/25 20:10 Dexamethasone 4mg/Ml 5ml Mdv IM 10/25/25 20:14 8 mg Q6H GLENROY Administration Diphenhydramine HCl 25 mg 09/25/25 20:06 09/25/25 20:09 Diphenhydramine 50mg/Ml Vial IM 09/25/25 20:07 25 mg ONCE ONE Administration Famotidine 40 mg 09/25/25 20:06 09/25/25 20:09 Famotidine 20mg Tablet PO 09/25/25 20:07 40 mg ONCE ONE Administration Sodium Chloride 8 ml 09/25/25 19:10 Sodium Chloride 0.9% 10ml Vial IV 10/25/25 19:09 NEEDED PRN dilute pepcid Medical Decision Narrative: patient is a 30-year-old female presenting to the emergency department for evaluation of rash on her chest abdomen and back. Patient is hemodynamically stable and nontoxic-appearing upon arrival, afebrile. Differential diagnosis includes allergic dermatitis, allergic reaction to medication. Patient has been using lotions and face washes and Benadryl cream and nothing has worked. She has not taken any Benadryl pills or any other kind of pills to help with this rash. Of note she also has a boil that she thinks might be an abscess. I looked at this area and it has no erythema, no induration, no drainage. It is skin colored and raised. Patient has been given medications IM and orally Critical Care Critical Care Time Critical Care Time: No
--- OUTSIDE RECORDS SUMMARY | 2025-09-25 19:16 | XMS_ITS | Clinical Summary ---
Author Organization [facility] Address [address] [place] [address] Phone Care Team Providers Care Maintenance Advisor Name Role Phone Alen Anglin Unavailable Unavailable Conditions or Problems Problem Name Problem Code Onset Date Status Entry Date Provider Comment Standard Description Annotate MSSA INFECTION 188948996 (SNOMED CT) 02/25 Active 02/25 German Durán MD Infection by methicillin sensitive Staphylococcus aureus Folliculitis 83885612 (SNOMED CT) 02/23 Active 02/23 Liliam Landaverde Folliculitis Furuncle of groin 42799764 (SNOMED CT) 02/23 Active 02/23 Liliam Landaverde Furuncle of groin ESBL E. coli, non-shiga producing (Z16.12) B96.29 (ICD-10-CM ) 02/23 Active 02/23 Liliam Landaverde Other Escherichia coli [E. coli] as the cause of diseases classified elsewhere Urinary tract infection (UTI) 74902575 (SNOMED CT) 02/23 Active 02/23 Liliam Landaverde Urinary tract infectious disease Medications Medication Instructions Start Date Stop Date Generic Name [facility] Provider DOXYCYCLINE MONOHYDRATE 100 MG CAPS 1 tablet BID 8 DOXYCYCLINE MONOHYDRATE [id number] German Durán MD WELLBUTRIN 100 MG ORAL TABLET BID 8 BUPROPION HCL [id number] German Durán MD VISTARIL CAPSULE as directed 8 HYDROXYZINE PAMOATE CAPS [id number] German Durán MD LISINOPRIL 40 MG TABS daily 8 LISINOPRIL [id number] German Durán MD MOBIC TABLET as needed for pain 8 MELOXICAM TABS [id number] German Durán MD Medications Administered No information available. Allergies, Adverse Reactions, Alerts Allergy Name Reaction Description Start Date Severity Statu s Provider ZIPRASIDONE HCL Moderate Active Vnaessa rlfer S SEROQUEL Moderate Active Alen S LABETALOL HCL Moderate Active Charl es S GEODON Moderate Active Alen S ADDERALL Moderate Active Alen S Results Date Name Value Unit Range Flag Description Office Visit: Room 4 SMOK ADVICE yes Smoking c essation education (procedure) CIGARET SMKG yes Tobacco smoking status SMOK STATUS Current every da y smoker Tobacco smoking status Plan of Care No information available. Procedures No information available. Vital Signs Date Name Value Unit Description BMI (Body Mass Index) 25.46 kg/m2 Bod y Mass Index (Ratio) Body Temperature 97.2 [degF] temperat ure E&M BP Diastolic 78 mm[Hg] blood pressu re, diastolic BP Systolic 122 mm[Hg] blood pressur e, systolic Heart Rate 76 /min pulse rate Height 65 [in_us] height E&M Respiratory Rate 16 /min respirat ory rate E&M Weight Measured 153 [lb_av] weight E& M Weight Measured 153 [lb_av] weight E& M Immunizations No information available. Advance Directives No information available.
--- OUTSIDE RECORDS SUMMARY | 2025-09-25 19:17 | XMS_ITS | Encounter Summary ---
Author Organization [facility] Address [address] [place] [address] Care Team Providers Care Tube Building Machine Operator Name Role Phone Nancy Chakraborty Denise BURGESS, DNP Primary Care Provider + Encounter Details Date Type Department Care Team ([facility] st Contact Info) Description 06/15/2024 Lab Requisition [facility] [address] [place] [address] System, Provider Not In, [address] [place] [address] Encounter for general adult medical examination without abnormal findings Social History Tobacco Use Types Packs/Day Years Used Date Smoking Tobacco: Every Day Cigarettes 0.5 15 Smokeless Tobacco: Never Alcohol Use Standard Drinks/Week Comments Yes 0 (1 standard drink = 0.6 oz pure alcohol) Alcoholic Drinks/day: Consumes alcohol occasionally PHQ-2 Answer Date Recorded Patient Health Questionnaire-2 Score 0 03/22/2023 PHQ-2A Answer Date Recorded Patient Health Questionnaire-2 Score 0 03/22/2023 Comments No Sex and Gender Information Value Date Recorded Sex Assigned at Not on file Legal Sex Female 7:42 PM EDT Gender Identity Not on file Sexual Orientation Not on file documented as of this encounter Plan of Treatment Not on file documented as of this encounter Procedures Procedure Name Priority Date/Time Associated Diagnosis Comments SHANTE AURIS SURVEILLANCE BY PCR Routine 06/15/2024 12:31 PM EDT Encounter for general adult medical examination without abnormal findings documented in this encounter Results * Shante auris Surveillance by PCR (06/15/2024 12:31 PM EDT) Shante auris PCR Result Not Detected Not Detected 06/16/2024 11:10 AM EDT [facility] Swab (Axilla and Groin) 06/15/2024 12:31 PM EDT 06/15/2024 4:34 PM EDT Narrative [facility] - 06/16/2024 11:10 AM EDT This PCR assay was developed and its performance characteristics determined by [facility] as appropriate for clinical purposes. This assay has not been cleared or approved by the FDA, but is performed in a CLIA regulated laboratory that is qualified to perform high-complexity testing. us Provider Not In System MD LAB MICROBIOLOGY - GEN ERAL ORDERABLES Final Result [facility] [address] [place] [address] documented in this encounter Visit Diagnoses Diagnosis Encounter for general adult medical examination without abnormal findings documented in this encounter Additional Health Concerns Assessment Noted Time A fall risk assessment has been complete d for the patient 03/22/2023 1:24 PM EDT A Body Mass Index follow-up plan has been documented for the patient 06/29/2023 9:12 PM EDT documented as of this encounter Care Teams Tube Building Machine Operator Relationship Specialty Start Date End Date Nancy Chakraborty APRN, DNP [address] [facility] [address] [phone] PCP - General Internal Medicine 05/15/21 documented as of this encounter
--- OUTSIDE RECORDS SUMMARY | 2025-09-25 19:17 | XMS_ITS | Clinical Summary ---
Author Organization [facility] Address [address] [place] [address] Care Team Providers Care Cloth Finishing Range Operator Chief Name Role Phone PalmerNancy gayle Denise BURGESS, DNP Primary Care Provider + Allergies Active Allergy Reactions Criticality Noted Date Comments Amphetamine-Dextroamphetam ine Anxiety Low 05/15/2021 Pt states worsens mood irritability Ziprasidone Anxiety Low 05/15/2021 Worsens mood & irritability Labetalol Hives Medium 05/15/2021 Quetiapine Dizziness Low 05/15/2021 Medications * This document contains information received from the source organization and may not represent a complete record from that organization. Nicotine 21-14-7 MG/24HR kitIndications: Tobacco abuse Follow directions for 3 month directions 1 kit 1 2 Active risperiDONE (RisperDAL) 2 MG tablet Take 1 tablet (2 mg) by mouth every night. Active lithium 300 MG tablet Take 1 tablet (300 mg) by mouth every night. Active buPROPion XL (Wellbutrin XL) 300 MG 24 hr tablet Take 1 tablet (300 mg) by mouth 1 (one) time each day. Do not crush, chew, or split. Active buprenorphine-n aloxone (Suboxone) 8-[address] 2 tablets under the tongue 1 (one) time each day. Active gabapentin (Neurontin) 400 MG capsule Take 1 capsule (400 mg) by mouth 3 (three) times a day. Active nirmatrelvir & ritonavir 300/100 (Paxlovid) Oral Therapy PackIndications :COVID-19 Take 3 tablets by mouth 2 (two) times a day. Take as directed by medication packaging 30 tablet 3 Active atomoxetine (Strattera) 80 MG capsule Take by mouth 1 (one) time each day. 3 Active ARIPiprazole (Abilify) 5 MG tablet Take 1 tablet (5 mg) by mouth 1 (one) time each day in the morning. 3 Active Active Problems Problem Noted Date Diagnosed Date Bilateral hand numbness 01/25/2023 Dental caries on smooth surface limited to ename l 05/20/2022 Overview (05/20/2022): Added automatically from request for surgery [id number] Resolved Problems Problem Noted Date Diagnosed Date Resolved Date COVID-19 06/23/2023 07/21/2025 Assessment & Plan (06/29/2023 9:12 PM EDT): - overall symptoms sound stable - continuing on paxlovid. Reviewed meds and no contraindications. - supportive care for symptoms including tylenol for headache, mucinex for cough and congestion, emphasized rest and fluids - discussed isolation guidelines - work excuse completed and attached to visit - follow up PRN if symptoms do not improve or new concerns arise Family History Medical History Relation Name Comments atrial septal defect Brother ADD / ADHD Father Alcohol abuse Father Hypertension Other 1 Thyroid cancer Other 2 Relation Name Status Comments Brother Father Other 1 Other 2 Social History Tobacco Use Types Packs/Day Years Used Date Smoking Tobacco: Every Day Cigarettes 0.5 15 Smokeless Tobacco: Never Tobacco Cessation:Ready to Q uit: Not Asked; Counseling Given: Not Answered Alcohol Use Standard Drinks/Week Comments Yes 0 [...] on file Sexual Orientation Not on file Last Filed Vital Signs Vital Sign Reading Time Taken Comments Blood Pressure 117/84 03/22/2023 1:25 PM EDT Pulse 87 03/22/2023 1:25 PM EDT Temperature 36.5 C (97.7 F) 06/23/2022 3:30 PM EDT Respiratory Rate 16 03/02/2023 3:29 PM EDT Oxygen Saturation 93% 03/22/2023 1:25 PM EDT Inhaled Oxygen Concentration - - Weight 72.6 kg (160 lb) 03/22/2023 1:25 PM EDT Height 165.1 cm (5' 5 ) 03/22/2023 1:25 PM EDT Body Mass Index 26.63 03/22/2023 1:25 PM EDT Plan of Treatment Health Maintenance Due Date Last Done Comments Dental Prophylaxis 1993 [facility]-Infant/Child/Adol SDOH Screenings 1993 [facility]-IPV Vaccines (2 of 3 - 4-dose series) 04/02/1997 03/05/1997 [facility]-Varicella Vaccines (1 of 2 - 13+ 2-dose series) 2006 [facility]- SDOH Screenings 2011 [facility]-Adult SDOH Screenings 2011 [facility]-Hepatitis B Vaccines (1 of 3 - 19+ 3-dose series) 02/10/2012 Dental X-Ray: Bitewings 01/07/2020 01/05/2019 HPV Vaccines (1 - 3-dose SCDM series) 02/10/2020 [facility]-Pap Smear 09/29/2020 09/29/2017 Dental Oral Exam 10/30/2022 04/29/2022 [facility]-Cervical Cancer Screening 2023 [facility]-HPV/Cotest 2023 09/29/2017 [facility]-Depression Screening 03/22/2024 03/22/2023 [facility]-DTaP,Tdap,and Td Vaccines (4 - Td or Tdap) 09/02/2024 09/02/2014, 08/18/2011, 03/05/1997 Dental X-Ray: Full Mouth 04/30/2025 04/29/2022, 03/05/2019 [id number]-92 Vaccine ( season) 2025 09/13/2021, 08/23/2021 [facility]-Influenza Vaccine (#1) 07/01/202508/20, 10/12/2018, 09/02/2014 [facility]-Zoster Vaccines (1 of 2) 2043 [facility]-HIV Screening Completed 08/09/2018, , 11/22/2017, Additional history exists [facility]-Hepatitis C Screening Completed 2017, 08/29/2017, 06/23/2017, Additional history exists [facility]-Hepatitis A Vaccines Aged Out 12/26/2019 No longer eligible based on patient's age to complete this topic [facility]-Obesity Intervention Completed 06/23/2023 [facility]-HIB Vaccines Aged Out No longer e ligible based on patient's age to complete this topic [facility]-Pneumococcal Vaccine: Pediatrics (0 to 5 Years) and At-Risk Patients (6 to 49 Years) Aged Out No longer eligible based on patient's age to complete this topic [facility]-Rotavirus Vaccines Aged Out No lo nger eligible based on patient's age to complete this topic Procedures Procedure Name Priority Date/Time Associated Diagnosis Comments PANORAMIC RADIOGRAPHIC IMAGE Routine 04/29/2022 2:30 PM EDT Dental decay COMPREHENSIVE ORAL EVALUATION - NEW OR ESTABLISHED PATIENT Routine 04/29/2022 2:30 PM EDT Dental decay INTRAORAL - COMPLETE SERIES OF RADIOGRAPHIC IMAGES Routine 01/05/2019 12:00 AM EST HIV 1/2 ANTIBODY/ANTIGEN SCREEN WITH REFLEX TO HIV I/II DIFFERENTIATION Routine 08/09/2018 12:23 PM EDT HEPATITIS C VIRUS (HCV) QUANTITATIVE PCR Routine 08/09/2018 12:20 PM EDT CYTO DATA CONVERSION Routine 09/29/2017 12:00 AM EST from Last 3 Months or Most Recently Relevant to Health Maintenance Results * HIV 1 & 2 Antibody/Antigen Screen (08/09/2018 12:23 PM EDT) HIV 1 Result NONREACTIVE Screening for HIV 1 and 2 antibodies is NONREACTIVE. No confirmatory testing is required. Immune Design 08/09/2018 12:2 3 PM EDT 08/09/2018 1:29 PM EDT Juan Manuel Can MD LAB BLOOD ORDERABLES Final Resu lt Performing Organization Address [facility] de Phone Number GONZALEZ * Hepatitis C Virus (HCV) Quantitative PCR (08/09/2018 12:20 PM EDT) Hepatitis C Virus (HCV) Quantitative Viral Load Log Result <1.08 [facility] Hepatitis C Virus (HCV) Quantitative IU/mL Result <12 [facility] HCV Quantitative PCR Comment Reference Interval: Not Detected, Log IU/mL <1.08, IU/mL <12 [facility] Comment: The Gasca M2000 HCV test is a Real Time in vitro nucleic acid amplification test for the quantitation of Hepatitis C Viral (HCV) RNA in human serum in HCV-infected individuals. It is intended for use as an aid in the management of HCV-infected individuals undergoing anti-viral therapy. The dynamic range for this test is log10 = 1.08 to 8.00and/or 12 to 100,000,000 IU/mL. The limit of detection (LOD) for this assay is 12 IU/mL and the limit of quantitation (LOQ) is 12 IU/mL. This assay is FDA approved for clinical use. 08/09/2018 12:2 0 PM EDT 08/09/2018 2:12 PM EDT Narrative [facility] - 08/10/2018 7:31 PM EDT HCV RNA NOT DETECTED Juan Manuel Can MD LAB BLOOD ORDERABLES Final Resu lt Performing Organization Address [facility] Co de Phone Number GONZALEZ * Cytology (09/29/2017 12:00 AM EST) 09/29/2017 09/30/2017 10: 23 AM EST Narrative [facility] - 10/18/2017 1:12 PM EST [facility] MR #: [id number] [facility] LIL[address]O [place], [place] [address] 1995 (Age: 22) FW Collect Date: 09/29/2017 00:00 Receipt Date: 09/30/2017 10:23 Page 1 DEPARTMENT OF PATHOLOGY AND LABORATORY MEDICINE CYTOPATHOLOGY REPORT Email: [email or web address] [id number] ATTENDING MD/Practitioner: Kaley Montoya, Service: OBE Location: [facility] Reported: 10/18/2017 13:12 Collected: 09/29/2017 00:00 INTERPRETATION A. THIN PREP (CERVICAL/VAGINAL): NEGATIVE FOR INTRAEPITHELIAL LESION OR MALIGNANCY. SATISFACTORY FOR EVALUATION; ENDOCERVICAL/ TRANSFORMATION ZONE COMPONENT PRESENT. Slide scanned and imaged by [email or web address] ThinPrep Imaging System with manual review of all selected argueta. Electronically Signed Out By WAYLON Bermudez (ASCP) WAYLON Bermudez (ASCP) Cervical cytology is a screening test primarily for squamous cancers and precursors and has associated false negative and positive results. New technologies such as liquid based sampling may decrease but will not eliminate all false negative results. Regular screening and follow-up of unexplained clinical signs and symptoms are recommended to minimize false negative results. Please see the ASCCP website (www.asccp.org) for followup recommendations. If HPV testing was requested, correlation with the results is suggested (please call Microbiology at [phone] for results). CLINICAL INFORMATION: Menstrual History: Cyclic Date of Last Menstrual Period: 09/12/2017 SPECIMEN DESCRIPTION: A: THIN PREP (CERVICAL/VAGINAL) THIN PREP PROCESS CELLULAR ENHANCEMENT ICD: F: A; RT IMAGE 11357 SNOMED CODES: A; [id number] In cases where a pathologist has signed out the report, the service has been rendered in part by a resident. The signing pathologist has performed and is responsible for the reported pathologic evaluation. Zaheer Montoya MD LAB PATHOLOGY ORDERA BLES Final Result [facility] from Last 3 Months or Most Recently Relevant to Health Maintenance Insurance [employer] D[employer] MEDICAID [place] Care Teams Cloth Finishing Range Operator Chief Relationship Specialty Start Date End Date Nancy Chakraborty APRN, DNP [address] [facility] [address] [phone] PCP - General Internal Medicine 05/15/21
[2025-09-25 19:18] VITALS: BP 154/83; PULSE 82; RESP 18; TEMP 36.6; O2SAT 98; BMI 29.5
[2025-09-25] MEDS: FAMOTIDINE 20MG TABLET 40 MG PO (20:09)
[2025-09-25] MEDS: DEXAMETHASONE 4MG/ML 5ML MDV 8 MG IM (20:10)
[2025-09-25 20:17] VITALS: BP 137/74; PULSE 78; RESP 18; TEMP 36.6; O2SAT 99
== END 2025-09-25 20:27 | disposition home or self-care (01) ==
PROVIDERS: Emergency Provider Student in an Organized Health Care Education/Training Program; PCP Registered Nurse
DX: L50.0 Allergic urticaria (principal)
CPT/HCPCS: 96372; 99283; J1100; J1200